=== PATIENT | male | born 1955 | race African-American/Black ===

== ENCOUNTER 2017-04-15 10:18 | Emergency (ER) | payer MEDICARE ==
--- NOTE | 2017-04-18 09:05 | ER ---
ADMIT: 04/15/2017 RM/LOC: ER [facility] MR#: [id number] [place], [place] [id number] MANO[address] ERWIN [address] [place] [address] Emergency Room Report SEX: M AGE: 61 : 1955 DATE: 04/15/2017 TIME: 1018 hours Please refer to the T-sheet for complete H and P. HISTORY OF PRESENT ILLNESS: Briefly, the patient is a 61-year-old, who [facility] , nauseous, has history of a history of schizophrenia, personality disorder. They were concerned because he did not eat, so they sent him over here. He admits having abdominal pain. PHYSICAL EXAMINATION: VITAL SIGNS: Vital signs stable. HEENT: Grossly normal. ABDOMEN: Soft, mildly tender epigastric. No rebound or guarding. No pain at McBurney's point. EMERGENCY DEPARTMENT COURSE: CBC normal except platelets 470. Chemistries normal except potassium 2.8, glucose 207, creatinine 1.7. Lipase normal. Alkaline phosphatase 159. UA normal except 3 red cells. He was given a liter of normal saline bolus, Zofran 4 IV, potassium 20 mEq p.o., and he was ready for discharge. ASSESSMENT: 1. Abdominal pain, nonspecific. 2. Nausea. 3. Hypokalemia. PLAN: Potassium 10 mEq a day for 10 days. [facility]. Return if worse. Fluids. Rob Mix MD/ stephen JOB #: [id number] CC: Rob Mix MD, Attending Physician [facility] Physician, Family Physician
== END 2017-04-15 12:59 | disposition home or self-care (01) ==
LOC: ER 10:18
DX: R10.13 Epigastric pain (principal); E87.6 Hypokalemia; R11.0 Nausea; I10 Essential (primary) hypertension; J45.909 Unspecified asthma, uncomplicated; E11.9 Type 2 diabetes mellitus without complications; F20.9 Schizophrenia, unspecified; F17.200 Nicotine dependence, unspecified, uncomplicated; Z79.899 Other long term (current) drug therapy; Z79.84 Long term (current) use of oral hypoglycemic drugs